=== PATIENT | male | born 1930 | race Caucasian/White ===

== ENCOUNTER 2016-03-22 08:35 | Outpatient (CLI) | payer MEDICARE, OTHER | END 2016-03-22 08:36 | disposition home or self-care (01) | DX: I48.0 Paroxysmal atrial fibrillation (principal) ==

== ENCOUNTER 2016-04-18 09:50 | Outpatient (CLI) | payer MEDICARE, OTHER | END 2016-04-18 09:51 | disposition home or self-care (01) | DX: I48.0 Paroxysmal atrial fibrillation (principal) ==

== ENCOUNTER 2016-05-17 09:23 | Outpatient (CLI) | payer MEDICARE, OTHER | END 2016-05-17 09:24 | disposition home or self-care (01) | DX: I48.0 Paroxysmal atrial fibrillation (principal) ==

== ENCOUNTER 2016-06-14 09:52 | Outpatient (CLI) | payer MEDICARE, OTHER | END 2016-06-14 09:53 | disposition home or self-care (01) | DX: I48.0 Paroxysmal atrial fibrillation (principal) ==

== ENCOUNTER 2016-08-25 08:59 | Outpatient (CLI) | payer MEDICARE, OTHER | END 2016-08-25 09:00 | disposition home or self-care (01) | LOC: LAB.F 08:59 | PROVIDERS: ATTEND Family Medicine | DX: I48.0 Paroxysmal atrial fibrillation (principal) | CPT/HCPCS: 85610 ==

== ENCOUNTER 2016-08-30 10:11 | Outpatient (CLI) | payer MEDICARE, OTHER | END 2016-08-30 10:12 | disposition home or self-care (01) | LOC: LAB.F 10:11 | PROVIDERS: ATTEND Family Medicine | DX: I48.0 Paroxysmal atrial fibrillation (principal) | CPT/HCPCS: 85610 ==

== ENCOUNTER 2016-09-04 08:59 | Outpatient (CLI) | payer MEDICARE, OTHER | END 2016-09-04 09:00 | disposition home or self-care (01) | LOC: LAB.F 08:59 | PROVIDERS: ATTEND Family Medicine | DX: I48.0 Paroxysmal atrial fibrillation (principal) | CPT/HCPCS: 85610 ==

== ENCOUNTER 2016-09-11 07:44 | Outpatient (CLI) | payer MEDICARE, OTHER | END 2016-09-11 07:45 | disposition home or self-care (01) | LOC: LAB.F 07:44 | PROVIDERS: ATTEND Family Medicine | DX: I48.0 Paroxysmal atrial fibrillation (principal) | CPT/HCPCS: 85610 ==

== ENCOUNTER 2016-09-26 07:45 | Outpatient (CLI) | payer MEDICARE, OTHER | END 2016-09-26 07:46 | disposition home or self-care (01) | LOC: LAB.F 07:45 | PROVIDERS: ATTEND Family Medicine | DX: I48.0 Paroxysmal atrial fibrillation (principal) | CPT/HCPCS: 85610 ==

== ENCOUNTER 2016-11-13 08:12 | Outpatient (CLI) | payer MEDICARE, OTHER | END 2016-11-13 08:13 | disposition home or self-care (01) | LOC: LAB.F 08:12 | PROVIDERS: ATTEND Family Medicine | DX: I48.0 Paroxysmal atrial fibrillation (principal) | CPT/HCPCS: 85610 ==

== ENCOUNTER 2016-12-12 10:20 | Outpatient (CLI) | payer MEDICARE, OTHER | END 2016-12-12 10:21 | disposition home or self-care (01) | LOC: LAB.F 10:20 | PROVIDERS: ATTEND Family Medicine | DX: I48.0 Paroxysmal atrial fibrillation (principal) | CPT/HCPCS: 85610 ==

== ENCOUNTER 2017-01-16 09:41 | Outpatient (CLI) | payer MEDICARE, OTHER | END 2017-01-16 09:42 | disposition home or self-care (01) | LOC: LAB.F 09:41 | PROVIDERS: ATTEND Family Medicine | DX: I48.0 Paroxysmal atrial fibrillation (principal) | CPT/HCPCS: 85610 ==

== ENCOUNTER 2017-01-30 08:18 | Outpatient (CLI) | payer MEDICARE, OTHER | END 2017-01-30 08:19 | disposition home or self-care (01) | LOC: LAB.F 08:18 | PROVIDERS: ATTEND Family Medicine | DX: I48.0 Paroxysmal atrial fibrillation (principal) | CPT/HCPCS: 85610 ==

== ENCOUNTER 2017-02-20 08:28 | Outpatient (CLI) | payer MEDICARE, OTHER | END 2017-02-20 08:29 | disposition home or self-care (01) | LOC: LAB.F 08:28 | PROVIDERS: ATTEND Family Medicine | DX: I48.0 Paroxysmal atrial fibrillation (principal) | CPT/HCPCS: 85610 ==

== ENCOUNTER 2017-03-13 09:24 | Outpatient (CLI) | payer MEDICARE, OTHER | END 2017-03-13 09:25 | disposition home or self-care (01) | LOC: LAB.F 09:24 | PROVIDERS: ATTEND Family Medicine | DX: I48.0 Paroxysmal atrial fibrillation (principal) | CPT/HCPCS: 85610 ==

== ENCOUNTER 2017-04-03 11:10 | Outpatient (CLI) | payer MEDICARE, OTHER | END 2017-04-03 11:11 | disposition home or self-care (01) | LOC: LAB.F 11:10 | PROVIDERS: ATTEND Family Medicine | DX: I48.0 Paroxysmal atrial fibrillation (principal) | CPT/HCPCS: 85610 ==

== ENCOUNTER 2017-05-01 12:02 | Outpatient (CLI) | payer MEDICARE, OTHER | END 2017-05-01 12:03 | disposition home or self-care (01) | LOC: LAB.F 12:02 | PROVIDERS: ATTEND Family Medicine | DX: I48.0 Paroxysmal atrial fibrillation (principal) | CPT/HCPCS: 85610 ==

== ENCOUNTER 2017-05-29 08:00 | Outpatient (CLI) | payer MEDICARE, OTHER | END 2017-05-29 08:01 | LOC: LAB.F 08:00 | PROVIDERS: ATTEND Family Medicine | DX: I48.0 Paroxysmal atrial fibrillation (principal) | CPT/HCPCS: 85610 ==

== ENCOUNTER 2017-06-19 08:40 | Outpatient (CLI) | payer MEDICARE, OTHER | END 2017-06-19 08:41 | disposition home or self-care (01) | LOC: LAB.F 08:40 | PROVIDERS: ATTEND Family Medicine | DX: I48.0 Paroxysmal atrial fibrillation (principal) | CPT/HCPCS: 85610 ==

== ENCOUNTER 2017-07-17 08:30 | Outpatient (CLI) | payer MEDICARE, OTHER | END 2017-07-17 08:31 | disposition home or self-care (01) | LOC: LAB.F 08:30 | PROVIDERS: ATTEND Family Medicine | DX: I48.0 Paroxysmal atrial fibrillation (principal) | CPT/HCPCS: 85610 ==

== ENCOUNTER 2017-08-08 09:20 | Outpatient (CLI) | payer MEDICARE, OTHER | END 2017-08-08 09:21 | disposition home or self-care (01) | LOC: LAB.F 09:20 | PROVIDERS: ATTEND Family Medicine | DX: Z51.81 Encounter for therapeutic drug level monitoring (principal); Z79.01 Long term (current) use of anticoagulants | CPT/HCPCS: 85610 ==

== ENCOUNTER 2017-08-10 08:41 | Outpatient (CLI) | payer MEDICARE, OTHER | END 2017-08-10 08:42 | disposition home or self-care (01) | LOC: LAB.F 08:41 | PROVIDERS: ATTEND Family Medicine | DX: Z51.81 Encounter for therapeutic drug level monitoring (principal); Z79.01 Long term (current) use of anticoagulants | CPT/HCPCS: 85610 ==

== ENCOUNTER 2017-08-22 08:02 | Outpatient (CLI) | payer MEDICARE, OTHER | END 2017-08-22 08:03 | disposition home or self-care (01) | LOC: LAB.F 08:02 | PROVIDERS: ATTEND Family Medicine | DX: Z51.81 Encounter for therapeutic drug level monitoring (principal); Z79.01 Long term (current) use of anticoagulants | CPT/HCPCS: 85610 ==

== ENCOUNTER 2017-09-12 12:49 | Outpatient (CLI) | payer MEDICARE, OTHER | END 2017-09-12 12:50 | disposition home or self-care (01) | LOC: LAB.F 12:49 | PROVIDERS: ATTEND Family Medicine | DX: Z51.81 Encounter for therapeutic drug level monitoring (principal); Z79.01 Long term (current) use of anticoagulants | CPT/HCPCS: 85610 ==

== ENCOUNTER 2017-09-26 10:47 | Outpatient (CLI) | payer MEDICARE, OTHER | END 2017-09-26 10:48 | disposition home or self-care (01) | LOC: LAB.F 10:47 | PROVIDERS: ATTEND Family Medicine | DX: Z51.81 Encounter for therapeutic drug level monitoring (principal); Z79.01 Long term (current) use of anticoagulants | CPT/HCPCS: 85610 ==

== ENCOUNTER 2017-10-16 08:57 | Outpatient (CLI) | payer MEDICARE, OTHER | END 2017-10-16 08:58 | disposition home or self-care (01) | LOC: LAB.F 08:57 | PROVIDERS: ATTEND Family Medicine | DX: Z51.81 Encounter for therapeutic drug level monitoring (principal); Z79.01 Long term (current) use of anticoagulants | CPT/HCPCS: 85610 ==

== ENCOUNTER 2017-11-13 09:39 | Outpatient (CLI) | payer MEDICARE, OTHER | END 2017-11-13 09:40 | disposition home or self-care (01) | LOC: LAB.F 09:39 | PROVIDERS: ATTEND Family Medicine | DX: Z51.81 Encounter for therapeutic drug level monitoring (principal); Z79.01 Long term (current) use of anticoagulants | CPT/HCPCS: 85610 ==

== ENCOUNTER 2017-12-11 09:18 | Outpatient (CLI) | payer MEDICARE, OTHER | END 2017-12-11 09:19 | disposition home or self-care (01) | LOC: LAB.F 09:18 | PROVIDERS: ATTEND Family Medicine | DX: Z51.81 Encounter for therapeutic drug level monitoring (principal); Z79.01 Long term (current) use of anticoagulants | CPT/HCPCS: 85610 ==

== ENCOUNTER 2018-01-07 09:52 | Outpatient (CLI) | payer MEDICARE, OTHER | END 2018-01-07 09:53 | disposition home or self-care (01) | LOC: LAB.F 09:52 | PROVIDERS: ATTEND Family Medicine | DX: Z51.81 Encounter for therapeutic drug level monitoring (principal); Z79.01 Long term (current) use of anticoagulants | CPT/HCPCS: 85610 ==

== ENCOUNTER 2018-02-05 09:43 | Outpatient (CLI) | payer MEDICARE, OTHER | END 2018-02-05 09:44 | disposition home or self-care (01) | LOC: LAB.F 09:43 | PROVIDERS: ATTEND Family Medicine | DX: Z51.81 Encounter for therapeutic drug level monitoring (principal); Z79.01 Long term (current) use of anticoagulants | CPT/HCPCS: 85610 ==

== ENCOUNTER 2018-03-15 08:02 | Outpatient (CLI) | payer MEDICARE, OTHER | END 2018-03-15 08:03 | disposition home or self-care (01) | LOC: LAB.F 08:02 | PROVIDERS: ATTEND Family Medicine | DX: Z51.81 Encounter for therapeutic drug level monitoring (principal); Z79.01 Long term (current) use of anticoagulants | CPT/HCPCS: 85610 ==

== ENCOUNTER 2018-03-28 08:08 | Outpatient (CLI) | payer MEDICARE, OTHER | END 2018-03-28 08:09 | disposition home or self-care (01) | LOC: LAB.F 08:08 | PROVIDERS: ATTEND Family Medicine | DX: Z51.81 Encounter for therapeutic drug level monitoring (principal); Z79.01 Long term (current) use of anticoagulants | CPT/HCPCS: 85610 ==

== ENCOUNTER 2018-04-25 09:34 | Outpatient (CLI) | payer MEDICARE, OTHER | END 2018-04-25 09:35 | disposition home or self-care (01) | LOC: LAB.F 09:34 | PROVIDERS: ATTEND Family Medicine | DX: Z51.81 Encounter for therapeutic drug level monitoring (principal); Z79.01 Long term (current) use of anticoagulants | CPT/HCPCS: 85610 ==

== ENCOUNTER 2018-05-02 08:04 | Outpatient (CLI) | payer MEDICARE, OTHER | END 2018-05-02 08:05 | disposition home or self-care (01) | LOC: LAB.F 08:04 | PROVIDERS: ATTEND Family Medicine | DX: Z51.81 Encounter for therapeutic drug level monitoring (principal); Z79.01 Long term (current) use of anticoagulants | CPT/HCPCS: 85610 ==

== ENCOUNTER 2018-05-16 07:37 | Outpatient (CLI) | payer MEDICARE, OTHER | END 2018-05-16 07:38 | disposition home or self-care (01) | LOC: LAB.F 07:37 | PROVIDERS: ATTEND Family Medicine | DX: Z51.81 Encounter for therapeutic drug level monitoring (principal); Z79.01 Long term (current) use of anticoagulants | CPT/HCPCS: 85610 ==

== ENCOUNTER 2018-06-14 07:41 | Outpatient (CLI) | payer MEDICARE, OTHER | END 2018-06-14 07:42 | disposition home or self-care (01) | LOC: LAB.F 07:41 | PROVIDERS: ATTEND Family Medicine | DX: Z51.81 Encounter for therapeutic drug level monitoring (principal); Z79.01 Long term (current) use of anticoagulants | CPT/HCPCS: 85610 ==

== ENCOUNTER 2018-07-12 10:06 | Outpatient (CLI) | payer MEDICARE, OTHER | END 2018-07-12 10:07 | disposition home or self-care (01) | LOC: LAB.F 10:06 | PROVIDERS: ATTEND Family Medicine | DX: Z51.81 Encounter for therapeutic drug level monitoring (principal); Z79.01 Long term (current) use of anticoagulants | CPT/HCPCS: 85610 ==

== ENCOUNTER 2018-09-06 08:34 | Outpatient (CLI) | payer MEDICARE, OTHER | END 2018-09-06 08:35 | disposition home or self-care (01) | LOC: LAB.S 08:34 | PROVIDERS: ATTEND Family Medicine | DX: Z79.01 Long term (current) use of anticoagulants (principal); Z51.81 Encounter for therapeutic drug level monitoring | CPT/HCPCS: 85610 ==

== ENCOUNTER 2018-09-20 09:47 | Outpatient (CLI) | payer MEDICARE, OTHER | END 2018-09-20 09:48 | disposition home or self-care (01) | LOC: LAB.S 09:47 | PROVIDERS: ATTEND Family Medicine | DX: Z51.81 Encounter for therapeutic drug level monitoring (principal); Z79.01 Long term (current) use of anticoagulants | CPT/HCPCS: 85610 ==

== ENCOUNTER 2018-10-07 | Outpatient (CLI) | payer MEDICARE, OTHER | END 2018-10-07 08:43 | disposition home or self-care (01) ==

== ENCOUNTER 2018-10-25 09:21 | Outpatient (CLI) | payer MEDICARE, OTHER | END 2018-10-25 09:22 | disposition home or self-care (01) | LOC: LAB.S 09:21 | PROVIDERS: ATTEND Family Medicine | DX: Z51.81 Encounter for therapeutic drug level monitoring (principal); Z79.01 Long term (current) use of anticoagulants | CPT/HCPCS: 85610 ==

== ENCOUNTER 2018-11-14 07:51 | Outpatient (CLI) | payer MEDICARE, OTHER | END 2018-11-14 07:52 | disposition home or self-care (01) | LOC: LAB.S 07:51 | PROVIDERS: ATTEND Family Medicine | DX: Z51.81 Encounter for therapeutic drug level monitoring (principal); Z79.01 Long term (current) use of anticoagulants | CPT/HCPCS: 85610 ==

== ENCOUNTER 2018-12-06 08:10 | Outpatient (CLI) | payer MEDICARE, OTHER | END 2018-12-06 08:11 | disposition home or self-care (01) | LOC: LAB.S 08:10 | PROVIDERS: ATTEND Family Medicine | DX: Z51.81 Encounter for therapeutic drug level monitoring (principal); Z79.01 Long term (current) use of anticoagulants | CPT/HCPCS: 85610 ==

== ENCOUNTER 2018-12-20 08:17 | Outpatient (CLI) | payer MEDICARE, OTHER | END 2018-12-20 08:18 | disposition home or self-care (01) | LOC: LAB.S 08:17 | PROVIDERS: ATTEND Family Medicine | DX: Z51.81 Encounter for therapeutic drug level monitoring (principal); Z79.01 Long term (current) use of anticoagulants | CPT/HCPCS: 85610 ==

== ENCOUNTER 2019-01-03 10:29 | Outpatient (CLI) | payer MEDICARE, OTHER | END 2019-01-03 10:30 | disposition home or self-care (01) | LOC: LAB.S 10:29 | PROVIDERS: ATTEND Family Medicine | DX: Z51.81 Encounter for therapeutic drug level monitoring (principal); Z79.01 Long term (current) use of anticoagulants | CPT/HCPCS: 85610 ==

== ENCOUNTER 2019-01-09 08:30 | Outpatient (CLI) | payer MEDICARE, OTHER | END 2019-01-09 08:31 | disposition home or self-care (01) | LOC: LAB.S 08:30 | PROVIDERS: ATTEND Family Medicine | DX: Z51.81 Encounter for therapeutic drug level monitoring (principal); Z79.01 Long term (current) use of anticoagulants | CPT/HCPCS: 85610 ==

== ENCOUNTER 2019-01-23 08:32 | Outpatient (CLI) | payer MEDICARE, OTHER | END 2019-01-23 08:33 | disposition home or self-care (01) | LOC: LAB.S 08:32 | PROVIDERS: ATTEND Family Medicine | DX: Z51.81 Encounter for therapeutic drug level monitoring (principal); Z79.01 Long term (current) use of anticoagulants | CPT/HCPCS: 85610 ==

== ENCOUNTER 2019-02-06 09:02 | Outpatient (CLI) | payer MEDICARE, OTHER | END 2019-02-06 09:03 | disposition home or self-care (01) | LOC: LAB.S 09:02 | PROVIDERS: ATTEND Family Medicine | DX: Z51.81 Encounter for therapeutic drug level monitoring (principal); Z79.01 Long term (current) use of anticoagulants | CPT/HCPCS: 85610 ==

== ENCOUNTER 2019-02-20 08:41 | Outpatient (CLI) | payer MEDICARE, OTHER | END 2019-02-20 08:42 | disposition home or self-care (01) | LOC: LAB.S 08:41 | PROVIDERS: ATTEND Family Medicine | DX: Z51.81 Encounter for therapeutic drug level monitoring (principal); Z79.01 Long term (current) use of anticoagulants | CPT/HCPCS: 85610 ==

== ENCOUNTER 2019-03-06 10:36 | Outpatient (CLI) | payer MEDICARE, OTHER | END 2019-03-06 10:37 | disposition home or self-care (01) | LOC: LAB.S 10:36 | PROVIDERS: ATTEND Family Medicine | DX: Z51.81 Encounter for therapeutic drug level monitoring (principal); Z79.01 Long term (current) use of anticoagulants | CPT/HCPCS: 85610 ==

== ENCOUNTER 2019-03-07 09:59 | Outpatient (CLI) | payer MEDICARE, OTHER | END 2019-03-07 10:00 | disposition home or self-care (01) | LOC: LAB.S 09:59 | PROVIDERS: ATTEND Family Medicine | DX: Z51.81 Encounter for therapeutic drug level monitoring (principal); Z79.01 Long term (current) use of anticoagulants | CPT/HCPCS: 85610 ==

== ENCOUNTER 2019-03-10 09:19 | Outpatient (CLI) | payer MEDICARE, OTHER | END 2019-03-10 09:20 | disposition home or self-care (01) | LOC: LAB.S 09:19 | PROVIDERS: ATTEND Family Medicine | DX: Z51.81 Encounter for therapeutic drug level monitoring (principal); Z79.01 Long term (current) use of anticoagulants | CPT/HCPCS: 85610 ==

== ENCOUNTER 2019-03-20 11:23 | Outpatient (CLI) | payer MEDICARE, OTHER | END 2019-03-20 11:24 | disposition home or self-care (01) | LOC: LAB.S 11:23 | PROVIDERS: ATTEND Family Medicine | DX: Z51.81 Encounter for therapeutic drug level monitoring (principal); Z79.01 Long term (current) use of anticoagulants | CPT/HCPCS: 85610 ==

== ENCOUNTER 2019-03-27 07:26 | Outpatient (CLI) | payer MEDICARE, OTHER | END 2019-03-27 07:27 | disposition home or self-care (01) | LOC: LAB.S 07:26 | PROVIDERS: ATTEND Family Medicine | DX: Z79.01 Long term (current) use of anticoagulants (principal); Z51.81 Encounter for therapeutic drug level monitoring | CPT/HCPCS: 85610 ==

== ENCOUNTER 2019-04-10 08:48 | Outpatient (CLI) | payer MEDICARE, OTHER | END 2019-04-10 08:49 | disposition home or self-care (01) | LOC: LAB.S 08:48 | PROVIDERS: ATTEND Family Medicine | DX: Z51.81 Encounter for therapeutic drug level monitoring (principal); Z79.01 Long term (current) use of anticoagulants | CPT/HCPCS: 85610 ==

== ENCOUNTER 2019-04-24 08:16 | Outpatient (CLI) | payer MEDICARE, OTHER | END 2019-04-24 08:17 | disposition home or self-care (01) | LOC: LAB.S 08:16 | PROVIDERS: ATTEND Family Medicine | DX: Z51.81 Encounter for therapeutic drug level monitoring (principal); Z79.01 Long term (current) use of anticoagulants | CPT/HCPCS: 85610 ==

== ENCOUNTER 2019-05-01 07:36 | Outpatient (CLI) | payer MEDICARE, OTHER | END 2019-05-01 07:37 | disposition home or self-care (01) | LOC: LAB.S 07:36 | PROVIDERS: ATTEND Family Medicine | DX: Z79.01 Long term (current) use of anticoagulants (principal); Z51.81 Encounter for therapeutic drug level monitoring | CPT/HCPCS: 85610 ==

== ENCOUNTER 2019-05-08 08:36 | Outpatient (CLI) | payer MEDICARE, OTHER | END 2019-05-08 08:37 | disposition home or self-care (01) | LOC: LAB.S 08:36 | PROVIDERS: ATTEND Family Medicine | DX: Z51.81 Encounter for therapeutic drug level monitoring (principal); Z79.01 Long term (current) use of anticoagulants | CPT/HCPCS: 85610 ==

== ENCOUNTER 2019-05-15 10:26 | Outpatient (CLI) | payer MEDICARE, OTHER | END 2019-05-15 10:27 | disposition home or self-care (01) | LOC: LAB.S 10:26 | PROVIDERS: ATTEND Family Medicine | DX: Z51.81 Encounter for therapeutic drug level monitoring (principal); Z79.01 Long term (current) use of anticoagulants | CPT/HCPCS: 85610 ==

== ENCOUNTER 2019-05-29 08:45 | Outpatient (CLI) | payer MEDICARE, OTHER | END 2019-05-29 08:46 | disposition home or self-care (01) | LOC: LAB.S 08:45 | PROVIDERS: ATTEND Family Medicine | DX: Z51.81 Encounter for therapeutic drug level monitoring (principal); Z79.01 Long term (current) use of anticoagulants | CPT/HCPCS: 85610 ==

== ENCOUNTER 2022-05-09 21:22 | Outpatient (CLI) | payer MEDICARE, OTHER | END 2022-05-09 23:59 | disposition EMS.NT | LOC: EMS 21:22 | DX: Z03.89 Encounter for observation for other suspected diseases and conditions ruled out (principal) ==